=== PATIENT | female | born 1950 | race Asian ===

== ENCOUNTER 2017-03-31 12:24 | Emergency (ER) | payer MEDICARE ==
[~2017-03-31] VITALS: Ht 152.4 cm; Wt 59.0 kg
[~2017-03-31 12:24] MED LIST: LANTUS100 UNIT/M SC; LOSARTAN POT100 MG PO; METFORMIN HCL500 M1 PO; SIMVASTATIN40 MG PO
[2017-03-31 13:29] LABS: HEMATOCRIT 45.4 % (37.0-47.0); HEMOGLOBIN 15.1 g/dl (12.0-16.0); IMMATURE GRANULOCYTES 0.2 % (0.0-1.0); MEAN CELL VOLUME 88.7 fL CALC (80.0-100.0); MEAN CORPUSCULAR HGB 29.5 pG CALC (26.0-32.0); MEAN CORPUSCULAR HGB CONC 33.3 g/L CALC (32.0-36.0); NEUT# 5.73 thou/uL (2.00-7.15); RED BLOOD COUNT 5.12 mill/uL (4.20-5.60); RED CELL DISTRI WIDTH 12.2 % (11.5-15.5)
[2017-03-31 13:40] LABS: ALBUMIN 4.7 g/dL (3.2-5.0); ALKALINE PHOSPHATASE 100 u/l (38-126); AMYLASE 179 u/l (30-110); ANION GAP 24 (6-22 (CALC)); BILIRUBIN, TOTAL 0.8 mg/dL (0.0-1.4); BUN 30 mg/dL (8-23); BUN/CREATININE RATIO 17 (12-20 (CALC)); CALCIUM 10.2 mg/dL (8.4-10.2); CARBON DIOXIDE 24 mmol/l (22-30); CHLORIDE 103 mmol/l (95-108); CREATININE 1.7 mg/dL (0.5-1.0); GFR 30 ML/MIN (>=60 (CALC)); GFR FOR AFR.AMER. 36 ML/MIN (>=60 (CALC)); GLUCOSE 263 mg/dL (82-115); LIPASE 181 u/l (23-300); POTASSIUM 3.6 mmol/l (3.5-5.1); SGOT/AST 26 u/l (9-36); SGPT/ALT 34 u/l (11-66); SODIUM 147 mmol/l (137-146)
[2017-03-31 13:52] LABS: MYOGLOBIN 62 ng/mL (0 - 62)
[2017-03-31] MEDS ORDERED: ASPIRIN81 MG PO (13:56)
[2017-03-31] MEDS ORDERED: VITAMIN C500 M4 PO (13:56)
[2017-03-31 15:15] VITALS: BP 146/74
--- NOTE | 2017-04-05 13:49 | NUR ---
Review of blood cultures from 03/31/17, final shows no growth. Pt presented to ED with abdominal pain and vomiting x 4 hours and was started on Unasyn. With a clinical impression of acute bowel perforation, sepsis, pt was trn to [facility]. No changes in antibiotic therapy warranted based on blood cultures. Unable to document in report section.
== END 2017-03-31 15:15 | disposition short-term general hospital (02) ==
LOC: ED 12:24
PROVIDERS: Emergency Medicine
PROC: 0T9B70Z Drainage of Bladder with Drainage Device, Via Natural or Artificial Opening (ICD-10-PCS; principal; 2017-03-31)
DX: A41.9 Sepsis, unspecified organism (principal); K63.1 Perforation of intestine (nontraumatic); E11.9 Type 2 diabetes mellitus without complications; I10 Essential (primary) hypertension; E78.5 Hyperlipidemia, unspecified; R94.31 Abnormal electrocardiogram [ECG] [EKG]

== ENCOUNTER 2017-06-02 16:36 | Inpatient (IN) | payer MEDICARE ==
[~2017-06-02] VITALS: Ht 152.4 cm; Wt 54.0 kg
[~2017-06-02 16:36] MED LIST changes: +ASPIRIN81 MG PO; +VITAMIN C500 M4 PO
--- NOTE | 2017-06-02 16:41 | NUR ---
PT ARRIVED TO THE UNIT AMBULATORY. WITH FAMILY.
[2017-06-02 17:06] VITALS: BP 157/74
[2017-06-02 18:19] LABS: HEMATOCRIT 30.3 % (37.0-47.0); HEMOGLOBIN 9.9 g/dl (12.0-16.0); MEAN CELL VOLUME 87.1 fL CALC (80.0-100.0); MEAN CORPUSCULAR HGB 28.4 pG CALC (26.0-32.0); MEAN CORPUSCULAR HGB CONC 32.7 g/L CALC (32.0-36.0); RED BLOOD COUNT 3.48 mill/uL (4.20-5.60); RED CELL DISTRI WIDTH 14.5 % (11.5-15.5)
[2017-06-02 18:38] LABS: ACT PARTIAL THROMBO TIME 22.7 SECONDS (20.0-32.5); CALCIUM 9.9 mg/dL (8.4-10.2); CREATININE 1.4 mg/dL (0.5-1.0); POTASSIUM 3.6 mmol/l (3.5-5.1)
--- NOTE | 2017-06-02 18:40 | NUR ---
PT'S ASSESSMENT IS COMPLETED: PT IS VERY TEARFUL. SHE JUST STARTED DRIVING AGAIN AND WALKING AND NOW SHE IS BACK TO BED REST. IV ATTEMPTED.X4 AND FINALLY IN LW WITH #22. LABS DRAWN WAITING FOR RESULTS TO START THE HEPARIN DRIP.
[2017-06-02 19:00] VITALS: BP 115/77
--- NOTE | 2017-06-02 20:00 | NUR ---
PATIENT RESTING IN BED AT THIS TIME-AWAKE ALERT AND ORIENTEDX3 WITH SOME ANXIETY REGUARDING THIS HOSPITALIZATION. PATIENT HAS HAD A VERY EVENTFUL SEVERAL WEEKS THAT INCLUDE BEING TRASFERRED TO [facility] FOR EMERGENT SURGERY, COLOSTOMY FOLLOWED BY REHAB/PHYSICAL THERAPY-JUST GETTING BACK ON HER FEET AND "THIS HAPPENED". TEARFUL AT TIMES. REASSURANCE OFFERED. PATIENT ADMITTED FOR DVT LEFT LEG-HEP GTT PROTOCOL STARTED. PATIENT WITH WEIGHT OF 54F KG- PTT-27.2. HEPARIN BOLUS GIVEN VIA LEFT WRIST IV SITE-4000UNITS PER PROTOCOL. HEP GTT STARTED AT 900UNITS/HR OR 18CC/HR PER PROTOCOL. PATIENT FOR PTT AT 0200 PER PROTOCOL. PATIENT EDUCATED REGUARDING THE HEPARIN PROCESS. IV SITE APPEARS HEALTHY TO LEFT WRIST SITE WITH GOOD BLOOD RETURN FROM IV SITE. SAFETY PRECAUTIONS REINFORCED WITH PATIENT. CALL LIGHT IN REACH. WILL CONT TO MONITOR.
--- NOTE | 2017-06-03 01:06 | NUR ---
PATIENT APPEARS SLEEPING AT THIS TIME WITH EYES CLOSED AND HEP GTT IN PROGRESS AT 18CC/HR PER P[ROTOCOL. CALL LIGHT IN REACH. WILL CONT TO MONITOR.
--- NOTE | 2017-06-03 02:45 | NUR ---
PTT-106.7. HEP GTT STOPPED PER PROTOCOL. PATIENT APPEARS SLEEPING AT THIS TIME. CALL LIGHT IN REACH. WILL CONT TO MONITOR.
--- NOTE | 2017-06-03 03:45 | NUR ---
HEPARIN GTT RESUMED AT 700UNITS PER HOUR-14CC/HR., IV SITE REMAINS HEALTHY TO LEFT WRIST WITH GOOD BLOOD RETURN. NEXT PTT AT 0945 THIS MORNING. CALL LIGHT IN REACH. WILL CONT TO MONITOR.
[2017-06-03 04:29] VITALS: BP 129/67
--- NOTE | 2017-06-03 06:15 | NUR ---
PATIENT APPEARS SLEEPING AT THIS TIME WITH HEP GTT INFUSING AT 14CC/HR-700UNITS/HR VIA LEFT WRIST SITE. SITE APPEARS HEALTHY. CALL LIGHT IN REACH. WILLL CONT TO MONITOR.
[2017-06-03 06:18] LABS: HEMATOCRIT 31.5 % (37.0-47.0); HEMOGLOBIN 10.2 g/dl (12.0-16.0); IMMATURE GRANULOCYTES 0.2 % (0.0-1.0); MEAN CELL VOLUME 86.8 fL CALC (80.0-100.0); MEAN CORPUSCULAR HGB 28.1 pG CALC (26.0-32.0); MEAN CORPUSCULAR HGB CONC 32.4 g/L CALC (32.0-36.0); NEUT# 3.31 thou/uL (2.00-7.15); RED BLOOD COUNT 3.63 mill/uL (4.20-5.60); RED CELL DISTRI WIDTH 14.5 % (11.5-15.5)
[2017-06-03 06:27] LABS: PROTHROMBIN TIME 11.4 SECONDS (9.0-12.5)
[2017-06-03 06:30] LABS: ALBUMIN 3.5 g/dL (3.2-5.0); BILIRUBIN, TOTAL 0.5 mg/dL (0.0-1.4); CREATININE 1.4 mg/dL (0.5-1.0); POTASSIUM 3.6 mmol/l (3.5-5.1); TOTAL PROTEIN 6.5 g/dL (6.3-8.2)
[2017-06-03 06:42] LABS: URINE BILIRUBIN - DIPSTICK NEGATIVE (NEGATIVE); URINE BLOOD DIPSTICK NEGATIVE (NEGATIVE); URINE COLOR YELLOW; URINE GLUCOSE - DIPSTICK NEGATIVE (NEGATIVE); URINE KETONE NEGATIVE (NEGATIVE); URINE LEUK ESTERASE TRACE (NEGATIVE); URINE NITRITE - DIPSTICK NEGATIVE (Negative); URINE PROTEIN - DIPSTICK NEGATIVE (NEG-TRACE); URINE SPECIFIC GRAVITY 1.015; URINE UROBILINOGEN - DIPSTICK 0.2 E.U./dL (0.2)
--- NOTE | 2017-06-03 06:44 | NUR ---
PATIENT GLUCOSE ON LAB DRAW WAS 61-PATIENT IS SITTING UP IN CHAIR AT THIS TIME-AWAKE ALERT AND ORIENTEDX3. ASYMPTOMATIC. PATIENT DRINKING BOOST AT THIS TIME. WILL RECHECK ACCU-CHECK NOW.
[2017-06-03 06:47] LABS: URINE CLARITY CLEAR
--- NOTE | 2017-06-03 07:00 | NUR ---
SHIFT CHANGE REPORT FROM CORA REYNA AWAKE ALERT AND ORIENTED SITTING UP IN CHAIR, NO C/O DISCOMFORT, HEPARIN GTT INFUSING @ 14ML/HR TO SITE IN LEFT WRIST, CALL ROONEY IN REACH, WILL CONTINUE TO MONITOR.
[2017-06-03 08:32] VITALS: BP 135/82
[2017-06-03] MEDS ORDERED: NEXIUM 24HR20 MG PO (10:31)
[2017-06-03] MEDS ORDERED: FLORASTOR250 M1 PO (10:32)
[2017-06-03] MEDS ORDERED: MULTIVITAMI1 PO (10:32)
[2017-06-03] MEDS ORDERED: XALATAN 0.005%2.5 ML OU (10:34)
[2017-06-03 15:49] VITALS: BP 123/79
--- NOTE | 2017-06-03 16:55 | NUR ---
Saw pt for [facility]. Pt complained of being hungry and her stomach "growling". Pt asked for milk. Nurse went to get her milk. Pt had many questions regarding PTT, INR, warfarin, and xarelto. Pt was explained the MoA of xarelto and warfarin and told that xarelto is not considered safe in pts with impaired kidney function. Pt had no further questions or concerns.
--- NOTE | 2017-06-03 18:41 | NUR ---
TELE MONITOR ORDERED BY RALPH, PT ADAMANTLY REFUSED AND EXPRESSED SHE IS NOT STAYING HERE AND NOT STAYING MORE THAN 3 DAYS DIFFERENT MEDICAL STAFF HAS BEEN TELLING HER SHE WILL BE HERE FOR 4-5 DAYS. BACK SEWER NOTIFIED OF REFUSAL OF TELE MONITORING.
[2017-06-03 19:56] VITALS: BP 125/75
--- NOTE | 2017-06-03 20:00 | NUR ---
PATIENT RESTING IN BED AWAKE ALERT AND ORIENTEDX3. IV HEP GTT IN PROGRESS AT 16CC/HR, 800UNITS/HR. SITE APPEARS HEALTHY AT THIS TIME. NEXT PTT@2145. PATIENT EXPRESSED CONCERN REGUARDING TELE MONITORING DEVICE BEING PLACED. ASSURED PATIENT THAT IT WOULD NOT BE PUT ON WITHOUT HER PERMISSION. COLOSTOMY APPLIANCE IN PLACE AND INTACT. PATIENT STATES THAT SHE DID CHANGE THE APPLIANCE HERSELF TODAY WITHOUT ANY DIFFICULTY. LEFT LEG SLIGHT SWELLING NOTED AND LEG ELEVATED ON PILLOW. GOOD PEDAL PULSES TO BLE. PATIENT DENIES ANY PAIN. SAFETY PRECAUTIONS REINFORCED. CALL LIGHT IN REACH. WILL CONT TO MONITOR.
--- NOTE | 2017-06-03 22:00 | NUR ---
PTT-57.3-HEPARIN GT UNCHANGED AT THIS TIME-REMAINS AT 16CC/HR, 800UNITS/HR. SECOND THERAPEUTIC-NEXT PTT IN AM PER PROTOCOL. PATIENT HAS BEEN ADVISED OF HEP GTT STATUS. NO COMPLAINTS. CALL LIGHT IN REACH. WILL CONT TO MONITOR.
--- NOTE | 2017-06-04 02:04 | NUR ---
PATIENT APPEARS SLEEPING AT THIS TIME WITH EYES CLOSED. IV HEPARIN GTT AT 16CC/HR PER PROTOCOL. CALL LIGHT IN REACH. WILL CONT TO MONITOR.
--- NOTE | 2017-06-04 05:23 | NUR ---
PATIENT RESTING IN BED WITH NO COMPLAINTS AT THIS TIME. CALL LIGHT IN REACH. WILL CONT TO MONITOR.
[2017-06-04 05:56] LABS: HEMATOCRIT 31.4 % (37.0-47.0); HEMOGLOBIN 10.3 g/dl (12.0-16.0); IMMATURE GRANULOCYTES 0.3 % (0.0-1.0); MEAN CELL VOLUME 86.3 fL CALC (80.0-100.0); MEAN CORPUSCULAR HGB 28.3 pG CALC (26.0-32.0); MEAN CORPUSCULAR HGB CONC 32.8 g/L CALC (32.0-36.0); NEUT# 2.88 thou/uL (2.00-7.15); RED BLOOD COUNT 3.64 mill/uL (4.20-5.60); RED CELL DISTRI WIDTH 14.4 % (11.5-15.5)
--- NOTE | 2017-06-04 06:00 | NUR ---
PTT THIS MORNING IS 69.7-NO CHANGE IN HEPARIN GTT PER PROTOCOL. REMAINS AT 800 UNITS/HR, 16CC/HR PER PROTOCOL. PTT, PT/INR AND CBC WILL BE ORDERED FOR TOMORROW MORNING. PATIENT IS AWARE OF CURRENT STATUS. CALL LIGHT IN REACH. WILL CONT TO MONITOR.
[2017-06-04 06:09] LABS: ACT PARTIAL THROMBO TIME 69.7 SECONDS (20.0-32.5); INTERNATIONAL NORMALIZED RATIO 1.1 RATIO (0.7-1.3)
[2017-06-04 06:24] VITALS: BP 126/78
[2017-06-04 07:00] VITALS: BP 126/76
--- NOTE | 2017-06-04 07:45 | NUR ---
PT ALERT, ORIENTED X3. SPEECH CLEAR, FACE SYMMETRICAL. PUPILS EQUAL, REACTIVE TO LIGHT. STRONG UPPER AND LOWER EXTREMITIES. STRONG APICAL, RADIAL, PEDAL PULSES. GOOD CAPILLARY REFILL. NO SKIN TURGOR. BOWEL SOUNDS ACTIVE. LUNG SOUNDS CLEAR. PT HAS EDEMA, RIGHT LOWER LEG, ANKLE REGION. SWELLING AND REDNESS TO AREA. RN NOTIFIED. PT HAS NO COMPLAINTS OF PAIN. CALL LIGHT IN REACH. BED IN LOWEST POSITION. SIDE RAILS UP. WILL CONTINUE TO MONITOR.
[2017-06-04 08:38] LABS: CREATININE 1.5 mg/dL (0.5-1.0)
--- NOTE | 2017-06-04 13:10 | NUR ---
PT.UPRIGHT IN BED READING MAGAZINE AND WATCHING TV. MEDICATED WITH COUMADIN ORDERS PROVIDE. POC DISCUSSED WITH PT. SHE DENIES ANY NEEDS AT THIS TIME. CALL LIGHT W/IN REACH
--- NOTE | 2017-06-04 15:53 | NUR ---
Pt was seen for [facility]. Pt complains of being bored and wants to be discharged. INR and PT was explained and Pt was handed additional reading material on the subject. Pt is currently not on osteoporosis therapy. She reports previously being on Prolia but had back pain and jaw pain as a result and eventually d/c'ed. Pt does not take calcium supplementation because of her reduced GFR and the risk of nephrolithiasis. Instead, Pt drinks milk regularly. Pt had no further questions or concerns.
[2017-06-04 16:00] VITALS: BP 133/68
[2017-06-04 19:20] VITALS: BP 112/70
--- NOTE | 2017-06-04 19:30 | NUR ---
PATIENT AWAKE ALERT AND ORIENTEDX3-NO COMPLAINTS EXCEPT THAT SHE IS BORED. IV HEP GTT IN PROGRESS AT 16CC/HR, 800UNITS/HR VIA LEFT WRIST SITE. SITE APPEARS HEALTHY AT THIS TIME. PATIENT DENIES ANY S/S OF BLEEDING IN STOOL OR URINE. COLOSTOMY APPLIANCE IN PLACE-PATIENT IS ABLE TO DO HER OWN COLOSTOMY CARE. LLE IS SLIGHTLY SWOLLEN AND PINK-ENCOURAGED PATIENT TO ELEVATED THE AFFECTED EXTREMITY. DENIES PAIN TO THE AFFECTED EXTREMITY. SAFETY PRECAUTIONS REINFORCED. CALL LIGHT IN REACH. WILL CONT TO MONITOR.
[2017-06-04 21:34] LABS: ANTI-THROMBIN III 103 (80-120)
[2017-06-04 23:20] VITALS: BP 120/71
--- NOTE | 2017-06-05 00:33 | NUR ---
PATIENT RESTING IN BED AT THIS TIME WITH EYES CLOSED AND APPEARS SLEEPING. CALL LIGHT IN REACH. HEP GTT REMAINS AT 16CC/HR PER PROTOCOL. WILL CONT TO MONITOR.
--- NOTE | 2017-06-05 04:00 | NUR ---
PATIENT APPEARS SLEEPING AT THIS TIME WITH EYES CLOSED. RESP EVEN AND UNLABORED. HEP GTT REMAINS AT 16CC/HR. SITE APPEARS HEALTHY AT THIS TIME. CALL LIGHT IN REACH. WILL CONT TO MONITOR.
[2017-06-05 05:38] VITALS: BP 119/71
[2017-06-05 05:46] LABS: HEMATOCRIT 30.6 % (37.0-47.0); HEMOGLOBIN 9.9 g/dl (12.0-16.0); MEAN CELL VOLUME 87.2 fL CALC (80.0-100.0); MEAN CORPUSCULAR HGB 28.2 pG CALC (26.0-32.0); MEAN CORPUSCULAR HGB CONC 32.4 g/L CALC (32.0-36.0); RED BLOOD COUNT 3.51 mill/uL (4.20-5.60); RED CELL DISTRI WIDTH 14.5 % (11.5-15.5)
[2017-06-05 06:18] LABS: ACT PARTIAL THROMBO TIME 78.7 SECONDS (20.0-32.5); INTERNATIONAL NORMALIZED RATIO 1.5 RATIO (0.7-1.3); PROTHROMBIN TIME 17.1 SECONDS (9.0-12.5)
--- NOTE | 2017-06-05 06:24 | NUR ---
PTT-78.7 THIS MORNING. NO CHANGE IN HEP GTT-REMAINS AT 16CC/HR, 800UNITS/HR. CALL LIGHT IN REACH. WILL CONT TO MONITOR.
[2017-06-05 06:25] LABS: CALCIUM 9.8 mg/dL (8.4-10.2); CREATININE 1.4 mg/dL (0.5-1.0); MAGNESIUM 1.5 mg/dL (1.6-2.3); POTASSIUM 4.1 mmol/l (3.5-5.1)
[2017-06-05 08:00] VITALS: BP 136/80
--- NOTE | 2017-06-05 10:39 | NUR ---
PT.SITTING IN CHAIR VISITING WITH FAMILY. PT.MEDICATED ORDERS PROVIDE. POC OF COLOSTOMY DISCUSSED, PT.INSTRUCTED TO CALL WHEN ASSISTANCE IS NEEDED. DENIES ANY FURTHER NEEDS AT THIS TIME
--- NOTE | 2017-06-05 12:50 | NUR ---
ASSISTED PT.CHANGE COLOSTOMY BAG AND DRESSING. STOMA PINK AND HEALTHY IN APPEARANCE. STOOL BROWN LOOSE. ASSISTED CLEAN UP AND BACK TO CHAIR. PT.DENIES ANY OTHER NEEDS.
[2017-06-05 15:05] VITALS: BP 117/72
--- NOTE | 2017-06-05 16:37 | NUR ---
NEW BAG OF MELONIE NELSON @ 800UNITS/HR 16 GTTS/HR.
--- NOTE | 2017-06-05 19:00 | NUR ---
RECEIVED CHANGE OF SHIFT REPORT FROM YAN JOHNSON. PATIENT A/O AND LYING IN BED. NO APPARENT ACUTE DISTRESS NOTED. DENIES PAIN. WILL CONTINUE TO MONITOR.
[2017-06-05 19:02] VITALS: BP 127/80
--- NOTE | 2017-06-06 | NUR ---
PATIENT RESTING WITH EYES CLOSED AND APPEARS TO BE ASLEEP. RESP. EVEN AND NONLABORED. NO APPARENT ACUTE DISTRESS NOTED. WILL CONTINUE TO MONITOR.
--- NOTE | 2017-06-06 04:00 | NUR ---
NO APPARENT ACUTE CHANGES NOTED IN PT'S CONDITION.
[2017-06-06 04:39] VITALS: BP 126/71
--- NOTE | 2017-06-06 07:00 | NUR ---
SHIFT CHANGE REPORT FROM AKSHAT, PT AWAKE ALERT AND ORIENTED SITTING UP IN CHAIR, HEPARIN DRIP INFUSING AT 16 CC/HR TO SITE IN LEFT WRIST, DENIES PAIN AND STATED SHE WANTS TO GO HOME, WILL CONTINUE TO MONITOR, CALL ROONEY IN REACH.
[2017-06-06 07:16] LABS: HEMATOCRIT 31.4 % (37.0-47.0); HEMOGLOBIN 10.3 g/dl (12.0-16.0); IMMATURE GRANULOCYTES 0.2 % (0.0-1.0); MEAN CELL VOLUME 86.7 fL CALC (80.0-100.0); MEAN CORPUSCULAR HGB 28.5 pG CALC (26.0-32.0); MEAN CORPUSCULAR HGB CONC 32.8 g/L CALC (32.0-36.0); NEUT# 2.8 thou/uL (2.00-7.15); RED BLOOD COUNT 3.62 mill/uL (4.20-5.60); RED CELL DISTRI WIDTH 14.5 % (11.5-15.5)
[2017-06-06 07:20] LABS: ALBUMIN 3.7 g/dL (3.2-5.0); CALCIUM 10.2 mg/dL (8.4-10.2); CREATININE 1.4 mg/dL (0.5-1.0); POTASSIUM 4.2 mmol/l (3.5-5.1)
[2017-06-06 07:45] LABS: ACT PARTIAL THROMBO TIME 116.7 SECONDS (20.0-32.5); INTERNATIONAL NORMALIZED RATIO 1.8 RATIO (0.7-1.3); PROTHROMBIN TIME 20.7 SECONDS (9.0-12.5)
[2017-06-06 08:24] VITALS: BP 133/81
[2017-06-06] MEDS ORDERED: WARFARIN SODIUM5 MG PO (08:31)
[2017-06-06 08:58] VITALS: BP 133/81
--- NOTE | 2017-06-06 12:25 | NUR ---
Discharge instructions given. Patient verbalizes understanding of same. Discharged in stable condition via Wheelchair to Home with family. All belongings sent with pt.
== END 2017-06-06 12:15 | disposition home or self-care (01) | DRG 301 ==
LOC: MS2 16:36
PROVIDERS: Internal Medicine; Internal Medicine Nephrology; Nurse Practitioner Family; ADMIT Internal Medicine; ATTEND Internal Medicine
DX: I82.402 Acute embolism and thrombosis of unspecified deep veins of left lower extremity (principal); E11.22 Type 2 diabetes mellitus with diabetic chronic kidney disease; N18.3 Chronic kidney disease, stage 3 (moderate); I12.9 Hypertensive chronic kidney disease with stage 1 through stage 4 chronic kidney disease, or unspecified chronic kidney disease; E78.5 Hyperlipidemia, unspecified; M19.90 Unspecified osteoarthritis, unspecified site; E83.42 Hypomagnesemia; D63.1 Anemia in chronic kidney disease; Z79.4 Long term (current) use of insulin; Z91.14 Patient's other noncompliance with medication regimen; Z93.3 Colostomy status; R60.0 Localized edema
CPT/HCPCS: J1644

== ENCOUNTER 2017-11-26 07:25 | Day surgery (SDC) | payer MEDICARE ==
[~2017-11-26] VITALS: Ht 152.4 cm; Wt 56.2 kg
[~2017-11-26 07:25] MED LIST changes: +COUMADIN2.5 MG PO; +FLORASTOR250 M1 PO; +MULTIVITAMI1 PO; +NEXIUM 24HR20 MG PO; +WARFARIN SODIUM5 MG PO; +XALATAN 0.005%2.5 ML OU
[2017-11-26 10:00] VITALS: BP 146/73
== END 2017-11-26 10:10 | disposition home or self-care (01) ==
LOC: ENDO 07:25 → ORM 08:20 → ENDO 10:10 → ORM 10:30
PROVIDERS: ATTEND Surgery
PROC: 0DJD8ZZ Inspection of Lower Intestinal Tract, Via Natural or Artificial Opening Endoscopic (ICD-10-PCS; principal; 2017-11-26)
DX: Z43.3 Encounter for attention to colostomy (principal); K57.30 Diverticulosis of large intestine without perforation or abscess without bleeding; E11.22 Type 2 diabetes mellitus with diabetic chronic kidney disease; I12.9 Hypertensive chronic kidney disease with stage 1 through stage 4 chronic kidney disease, or unspecified chronic kidney disease; N18.9 Chronic kidney disease, unspecified; M19.90 Unspecified osteoarthritis, unspecified site; E78.5 Hyperlipidemia, unspecified; I25.10 Atherosclerotic heart disease of native coronary artery without angina pectoris; Z90.49 Acquired absence of other specified parts of digestive tract

== ENCOUNTER 2021-03-05 13:48 | Emergency (ER) | payer MEDICARE ==
[~2021-03-05] VITALS: Ht 152.4 cm; Wt 50.0 kg
[2021-03-05] MEDS ORDERED: NIFEDIPINE60 MG PO (14:34)
[2021-03-05] MEDS ORDERED: LANTUS100 UNIT SC (14:35)
[2021-03-05] MEDS ORDERED: CRESTOR5 MG PO (14:38)
[2021-03-05] MEDS ORDERED: IRON HIGH-POTE325 MG PO (14:40)
[2021-03-05] MEDS ORDERED: TIMOLOL 0.5%5 ML OU (14:42)
[2021-03-05] MEDS ORDERED: ALENDRONATE SOD70 MG PO (14:42)
[2021-03-05] MEDS ORDERED: FLEXERIL5 M1 PO (14:55)
[2021-03-05] MEDS ORDERED: LORTAB 5/3255 MG PO (14:55)
[2021-03-05 15:02] VITALS: BP 188/86
== END 2021-03-05 15:03 | disposition home or self-care (01) ==
LOC: ED 13:48
DX: M54.6 Pain in thoracic spine (principal); R07.81 Pleurodynia; R07.89 Other chest pain; T45.8X5A Adverse effect of other primarily systemic and hematological agents, initial encounter; I10 Essential (primary) hypertension; E11.9 Type 2 diabetes mellitus without complications; Z79.4 Long term (current) use of insulin

== ENCOUNTER 2022-10-21 16:49 | Observation (INO) | payer MEDICARE ==
[2022-10-21] VITALS (14 sets, daily range): BP systolic 112–170; BP diastolic 65–128
[~2022-10-21] VITALS: Ht 152.4 cm; Wt 53.0 kg
[~2022-10-21 16:49] MED LIST changes: +ALENDRONATE SOD70 MG PO; +CRESTOR5 MG PO; +FLEXERIL5 M1 PO; +IRON HIGH-POTE325 MG PO; +LANTUS100 UNIT SC; +LORTAB 5/3255 MG PO; +NIFEDIPINE60 MG PO; +TIMOLOL 0.5%5 ML OU
[2022-10-21 17:35] LABS: BASO% 0.4 % (0-3); EOS% 0.7 % (0-8); HEMATOCRIT 29.8 % (37.0-47.0); HEMOGLOBIN 10.2 g/dl (12.0-16.0); IMMATURE GRANULOCYTES 0.1 % (0.0-5.0); LYMPH% 10.6 % (15-41); MEAN CELL VOLUME 89.8 fL CALC (80.0-100.0); MEAN CORPUSCULAR HGB 30.7 pG CALC (26.0-32.0); MEAN CORPUSCULAR HGB CONC 34.2 g/dL CAL (32.0-36.0); MONO% 4.1 % (2-13); NEUT# 6.09 thou/uL (2.00-7.15); NEUT% 84.1 % (42-76); RED BLOOD COUNT 3.32 mill/uL (4.20-5.60); RED CELL DISTRI WIDTH 12.3 % (11.5-15.5)
[2022-10-21] MEDS ORDERED: LOSARTAN POTASS50 MG PO (17:48)
[2022-10-21] MEDS ORDERED: LOPRESSOR25 M1 PO (17:48)
[2022-10-21] MEDS ORDERED: ELIQUIS2.5 MG PO (17:48)
[2022-10-21 17:50] LABS: ALBUMIN 4.5 g/dL (3.2-5.0); ALKALINE PHOSPHATASE 129 u/l (38-126); BUN 47 mg/dL (8-23); CARBON DIOXIDE 25 mmol/l (22-30); CHLORIDE 97 mmol/l (95-108); SODIUM 137 mmol/l (137-146); TOTAL PROTEIN 7.6 g/dL (6.3-8.2)
[2022-10-21] MEDS ORDERED: ROSUVASTATIN CAL5 MG (17:50)
[2022-10-21] MEDS ORDERED: LANTUS100 UNIT SC (17:50)
[2022-10-21 17:55] LABS: ANION GAP 18 (6-22 (CALC)); BILIRUBIN, TOTAL 0.9 mg/dL (0.02-1.3); BUN/CREATININE RATIO 8 (12-20 (CALC)); CREATININE 5.6 mg/dL (0.5-1.0); GFR FOR AFR.AMER. 9 ML/MIN (>=60 (CALC)); GFR OTHER RACES 7 ML/MIN (>=60 (CALC)); POTASSIUM 3.4 mmol/l (3.5-5.1); SGOT/AST 87 u/l (9-36)
[2022-10-22] VITALS: BP 167/57
[2022-10-22 04:08] VITALS: BP 194/75
[2022-10-22 05:53] LABS: CREATININE 7.4 mg/dL (0.5-1.0); POTASSIUM 4.1 mmol/l (3.5-5.1)
[2022-10-22 07:44] VITALS: BP 174/72
[2022-10-22 09:05] VITALS: BP 174/72
== END 2022-10-22 11:31 | disposition home or self-care (01) ==
LOC: ED 16:49 → MS2 19:03 → ICU 19:03 → MS2 20:03
PROVIDERS: Family Medicine; ADMIT Internal Medicine; ATTEND Internal Medicine
DX: I48.91 Unspecified atrial fibrillation (principal); I12.0 Hypertensive chronic kidney disease with stage 5 chronic kidney disease or end stage renal disease; E11.22 Type 2 diabetes mellitus with diabetic chronic kidney disease; N18.6 End stage renal disease; D63.1 Anemia in chronic kidney disease; R74.8 Abnormal levels of other serum enzymes; E78.5 Hyperlipidemia, unspecified; Z99.2 Dependence on renal dialysis; Z79.4 Long term (current) use of insulin; Z86.718 Personal history of other venous thrombosis and embolism; Z79.01 Long term (current) use of anticoagulants; Z91.15 Patient's noncompliance with renal dialysis

== ENCOUNTER 2023-02-10 16:15 | Emergency (ER) | payer MEDICARE ==
[2023-02-10] VITALS (30 sets, daily range): BP systolic 149–186; BP diastolic 67–82
[~2023-02-10] VITALS: Ht 152.4 cm; Wt 52.7 kg
[~2023-02-10 16:15] MED LIST changes: +ELIQUIS2.5 MG PO; +LOPRESSOR25 M1 PO; +LOSARTAN POTASS50 MG PO; +ROSUVASTATIN CAL5 MG
[2023-02-10 16:43] LABS: BASO% 0.4 % (0-3); EOS% 2.7 % (0-8); HEMATOCRIT 31.8 % (37.0-47.0); HEMOGLOBIN 10.5 g/dl (12.0-16.0); IMMATURE GRANULOCYTES 0.1 % (0.0-5.0); LYMPH% 17.4 % (15-41); MEAN CELL VOLUME 91.1 fL CALC (80.0-100.0); MEAN CORPUSCULAR HGB 30.1 pG CALC (26.0-32.0); MONO% 7.8 % (2-13); NEUT# 5.07 thou/uL (2.00-7.15); NEUT% 71.6 % (42-76); RED BLOOD COUNT 3.49 mill/uL (4.20-5.60); RED CELL DISTRI WIDTH 14.7 % (11.5-15.5)
[2023-02-10 17:03] LABS: ALBUMIN 4.3 g/dL (3.2-5.0); BILIRUBIN, TOTAL 1.1 mg/dL (0.02-1.3); TOTAL PROTEIN 7.6 g/dL (6.3-8.2)
[2023-02-10 17:06] LABS: CREATININE 4.9 mg/dL (0.5-1.0); POTASSIUM 3.5 mmol/l (3.5-5.1)
[2023-02-10 17:33] LABS: TSH, 3RD GENERATION 1.81 uIU/mL (0.47 - 4.68)
== END 2023-02-10 19:08 | disposition home or self-care (01) ==
LOC: ED 16:15 → ED-I 18:00 → ED 19:08
PROVIDERS: Family Medicine
DX: I48.91 Unspecified atrial fibrillation (principal); I12.0 Hypertensive chronic kidney disease with stage 5 chronic kidney disease or end stage renal disease; E11.22 Type 2 diabetes mellitus with diabetic chronic kidney disease; N18.6 End stage renal disease; Z99.2 Dependence on renal dialysis; Z79.4 Long term (current) use of insulin